=== PATIENT | female | born 1945 | race Asian ===

== ENCOUNTER 2017-12-20 19:17 | Emergency (ER) | payer OTHER ==
--- NOTE | 2017-12-20 20:30 | EDPHY ---
H & P Time Seen by Provider: 12/20/17 20:15 HPI/ROS: CHIEF COMPLAINT: Right lateral foot pain HISTORY OF PRESENT ILLNESS: 72-year-old female arrives via private vehicle stating that she was walking her dog when her dog pulled her and she impacted her right calcaneus hard against the ground. No fall from height. No ankle pain. She also sustained a right knee abrasion with no underlying osseous discomfort of the right knee. No back pain. No knee pain. No pelvic pain. No head injury. PRIMARY CARE PROVIDER: REVIEW OF SYSTEMS: A ten point review of systems was performed and is negative with the exception of the items mentioned in the HPI PAST MEDICAL/SURGICAL HISTORY: no anticoagulant use, no relevant medical/ surgical history SOCIAL HISTORY: denies alcohol use at time of incident PHYSICAL EXAM 1) GENERAL: Well-developed, well-nourished, alert and oriented. Appears to be in no acute distress. Answering questions appropriately. 2) HEAD: Normocephalic, atraumatic 3) HEENT: Pupils equal, round, reactive to light bilaterally. 4) NECK: No cervical collar is on. Posterior cervical spine is nontender, no stepoff, no effusion. Full range of motion which does not elicit any midline cervical spine pain, no posterior midline tenderness, no step-off. 5) LUNGS: Clear to auscultation bilaterally, no wheezes, no rhonchi, no retractions. No obvious signs of trauma. No chest wall pain. No flaring, no grunting. Moving symmetrically. No crepitus. 6) HEART: Regular rate and rhythm, 7) ABDOMEN: No guarding, no rebound, no focal tenderness, no peritoneal signs, no signs of trauma, no ecchymosis 8) MUSCULOSKELETAL: Right lower extremity: Abrasion to right prepatellar region with no underlying osseous discomfort, full pain-free range of motion. Proximally distally nontender. Specifically the knee tibial plateau are pain- free, the pelvis in acetabulum are nontender. Patient is tender to palpation right lateral calcaneus. Soft compartments. Intact skin. The ankle is nontender. 5th metatarsal is nontender. DP PT pulses present and brisk. Brisk capillary refill. 9) BACK: No midline vertebral tenderness, no fluctuance, no step-off, no obvious trauma, no visual or palpable abnormality. 10) SKIN: No laceration. DIFFERENTIAL DIAGNOSIS: in no particular order including but not limited to fracture, sprain, compartment syndrome Procedure: Crutches indications for crutch use discussed with patient. Patient fitted for crutches by ER staff. Recommend nonweightbearing Observed ambulating with crutches. I think the patient has the capacity to safely use crutches. Usual and customary crutch walking precautions provided Procedure: Splint A posterior short-leg Ortho Glass was applied by ER bottle house quality control technician. After application of the splint I returned and re-examined the patient. The splint was adequately immobilizing the joint and distal to the splint the patient's circulation and sensation were intact. Patient shows no signs of compartment syndrome. Was given orthopedic precautions. Smoking Status: Never smoked Constitutional: Initial Vital Signs Temperature (C) 37.0 C 12/20/17 19:29 Heart Rate 60 12/20/17 19:29 Respiratory Rate 16 12/20/17 19:29 Blood Pressure 158/78 H 12/20/17 19:29 O2 Sat (%) 98 12/20/17 19:29 O2 Delivery Mode Room Air Allergies/Adverse Reactions: No Known Allergies Allergy (Unverified 12/20/17 19:35) Home Medications: Medication Instructions Recorded NK [No Known Home Meds] 12/20/17 MDM/Departure - MDM Imaging Results: Imaging Impressions Foot X-Ray 12/20/17 19:39 Impression: Acute fracture of the calcaneus. Please see separately dictated report of CT left foot performed on the same day. Dr. Gates discussed these findings by telephone with David Farley at 2128 hours on 12/20/2017. Procedures: Procedure: Crutches indications for crutch use discussed with patient. Patient fitted for crutches by ER staff. Observed ambulating with crutches. I think the patient has the capacity to safely use crutches. Usual and customary crutch walking precautions provided Procedure: Splint A posterior short-leg Ortho Glass splint was applied by ER bottle house quality control technician. After application of the splint I returned and re-examined the patient. The splint was adequately immobilizing the joint and distal to the splint the patient's circulation and sensation were intact. Patient shows no signs of compartment syndrome. Was given orthopedic precautions. Medications Given: Discontinued Medications Hydrocodone Bitart/Acetaminophen ([place] 5/325mg Prepack#6) 1 btl MICHI EDNOW ONE Stop: 12/20/17 22:26 Last Admin: 12/20/17 22:32 Dose: 1 btl ED Course/Re-evaluation: 10:22 p.m.: Care of patient under supervision of secondary supervising physician Dr Vides with whom I discussed case. Consultation with on-call orthopedics Dr. Neftali Gutierres who reviewed the patient's images remotely. Recommended splint, crutches, nonweightbearing, follow up in office. Patient was re-evaluated with serial examinations, remains neurovascularly intact with no evidence of compartment syndrome. Patient given usual and customary orthopedic precautions and instructions. Stressed importance of close follow- up. She feels comfortable being discharged. - Depart Disposition: Home, Routine, Self-Care Clinical Impression: Right calcaneal fracture Qualifiers: Encounter type: initial encounter Calcaneus location: body Fracture type: closed Fracture alignment: nondisplaced Qualified Code(s): S92.014A - Nondisplaced fracture of body of right calcaneus, initial encounter for closed fracture Condition: Good Instructions: Hydrocodone/Acetaminophen (By mouth), Calcaneal Fracture (ED) Additional Instructions: Do not put weight on your foot. Wear your splint. Return to the ER immediately if you experience discoloration, have worsening pain, numbness, tingling, or any other symptoms that concern you. If you received x-rays in the emergency department today, be advised, that ligamentous, tendon, muscular, and other non-bony injury cannot be fully ruled out. Try to keep your affected extremity elevated above the level of your chest, and keep cold packs on the affected area, for the next 48 hours. Follow up with orthopedic surgeon as instructed on your aftercare instructions. Referrals: Neftali Gutierres MD [Medical Doctor] - 1-2 days without fail
[2017-12-20] MEDS ORDERED: HYDROCOD/APAP 5/325 PREPACK#6 BTL TAKEHOME ONE (22:25)
[2017-12-20 23:32] VITALS: BP 141/70
== END 2017-12-20 23:31 | disposition home or self-care (01) ==
DX: S92.014A Nondisplaced fracture of body of right calcaneus, initial encounter for closed fracture (principal); W01.0XXA Fall on same level from slipping, tripping and stumbling without subsequent striking against object, initial encounter; Y99.8 Other external cause status; Y93.K1 Activity, walking an animal

== ENCOUNTER → 2018-03-29 | Outpatient (CLI) | payer OTHER | LOC: FIMAGING 13:08 | PROVIDERS: ATTEND Family Medicine | DX: R60.0 Localized edema (principal); Z12.31 Encounter for screening mammogram for malignant neoplasm of breast; Z86.718 Personal history of other venous thrombosis and embolism ==